=== PATIENT | female | born 1975 | race Caucasian/White ===

== ENCOUNTER 2020-03-21 08:36 | Outpatient (REF) | payer BC, SELFPAY ==
[2020-03-21 11:18] LABS: MANUAL DIFF FLAG NO
[2020-03-21 11:20] LABS: Basophils Percent Auto 0.4 % (0-2); Eosinophils Absolute Auto 0.3 X10*3/uL (0.0-0.4); Eosinophils Percent Auto 4.8 % (0-4); Hematocrit 34.7 % (37-47); Hemoglobin 11.2 g/dl (12.0-16.0); Imm Gran Abs Auto 0.01 X10*3/uL (0.00-0.03); Imm Gran Pct Auto 0.2 % (0.0-0.4); Lymphocytes Absolute Auto 1.4 X10*3/uL (1.2-4.9); Lymphocytes Percent Auto 26.8 % (20-40); Mean Corpuscular HGB Conc 32.3 g/dl (31.0-35.0); Mean Corpuscular Hemoglobin 30.4 pg (27.0-33.0); Mean Platelet Volume 11.8 fL (9.4-12.3); Monocytes Absolute Auto 0.6 X10*3/uL (0.1-1.2); Monocytes Percent Auto 11.7 % (2-11); Neutrophils Percent Auto 56.1 % (45-73); Platelet Count 232 X10*3/uL (160-400); Red Blood Count 3.69 X10*6/uL (4.20-5.50); Red Cell Distribution Width 12.7 % (11.0-16.0); White Blood Count 5.4 X10*3/uL (4.8-10.8)
[2020-03-21 11:55] LABS: Alanine Aminotransferase 17 U/L (0-31); Albumin Level 3.8 g/dL (3.5-5.0); Alkaline Phosphatase 65 U/L (39-117); Anion Gap 10 (12-20); Aspartate Amino Transferase 14 U/L (5-31); Bilirubin Total 0.4 mg/dL (0.0-1.0); Blood Urea Nitrogen 15 mg/dL (9-16); Calcium 8.6 mg/dL (8.4-10.2); Carbon Dioxide 27 mmol/L (22-29); Chloride 106 mmol/L (96-108); Cholesterol 182 mg/dL; Estimated Glomerular Filt Rate > 60; Glucose Fasting 95 mg/dL (60-99); HDL Cholesterol 47 mg/dL; LDL Cholesterol Calculated 121 mg/dl; Sodium 139 mmol/L (135-145); Total Protein 6.3 g/dL (6.5-8.0); Triglycerides 74 mg/dL
[2020-03-21 12:15] LABS: Thyroid Stimulating Hormone 1.19 uIU/mL (0.32-4.0); Vitamin D 25-OH Total 21.1 ng/mL (>30)
[2020-03-22 07:50] LABS: ~HepC Num1 0.06 S/CO (0.00-0.79); ~Hepatitis C Antibody Nonreactive (Nonreactive)
== END 2020-03-21 08:37 | disposition home or self-care (01) ==
LOC: HO.MANLDS 08:36
PROVIDERS: PCP Internal Medicine; Visit Provider Internal Medicine
DX: Z00.00 Encounter for general adult medical examination without abnormal findings (principal); Z13.220 Encounter for screening for lipoid disorders; Z13.29 Encounter for screening for other suspected endocrine disorder; Z11.59 Encounter for screening for other viral diseases
CPT/HCPCS: 36415; 80053; 80061; 82306; 84443; 85025; 86803

== ENCOUNTER 2021-02-23 08:13 | Outpatient (REF) | payer BC, SELFPAY ==
[2021-02-23 11:06] LABS: Basophils Percent Auto 0.4 % (0-2); Eosinophils Absolute Auto 0.3 X10*3/uL (0.0-0.4); Eosinophils Percent Auto 5.1 % (0-4); Hematocrit 38.4 % (37.0-47.0); Hemoglobin 12.9 g/dl (12.0-16.0); Imm Gran Abs Auto 0.01 X10*3/uL (0.00-0.03); Imm Gran Pct Auto 0.2 % (0.0-0.4); Lymphocytes Absolute Auto 1.5 X10*3/uL (1.2-4.9); Lymphocytes Percent Auto 26.2 % (20-40); MANUAL DIFF FLAG NO; Mean Corpuscular HGB Conc 33.6 g/dl (31.0-35.0); Mean Corpuscular Hemoglobin 31.5 pg (27.0-33.0); Mean Corpuscular Volume 93.7 fL (80.0-98.0); Mean Platelet Volume 11.3 fL (9.4-12.3); Monocytes Absolute Auto 0.6 X10*3/uL (0.1-1.2); Monocytes Percent Auto 10.8 % (2-11); Neutrophils Absolute Auto 3.2 x10*3/uL (2.0-8.3); Neutrophils Percent Auto 57.3 % (45-73); Platelet Count 260 X10*3/uL (160-400); Red Cell Distribution Width 12.2 % (11.0-16.0); White Blood Count 5.7 X10*3/uL (4.8-10.8)
[2021-02-23 11:34] LABS: Alanine Aminotransferase 16 U/L (0-31); Alkaline Phosphatase 65 U/L (39-117); Anion Gap 11 (12-20); Aspartate Amino Transferase 15 U/L (5-31); Bilirubin Total 0.7 mg/dL (0.0-1.0); Blood Urea Nitrogen 14 mg/dL (9-16); Calcium 8.9 mg/dL (8.4-10.2); Carbon Dioxide 25 mmol/L (22-29); Chloride 105 mmol/L (96-108); Cholesterol 173 mg/dL; Estimated Glomerular Filt Rate > 60; Glucose Fasting 88 mg/dL (60-99); HDL Cholesterol 48 mg/dL; LDL Cholesterol Calculated 112 mg/dl; Potassium 4.2 mmol/L (3.3-5.1); Sodium 137 mmol/L (135-145); Total Protein 6.7 g/dL (6.5-8.0); Triglycerides 69 mg/dL
[2021-02-23 11:56] LABS: Vitamin D 25-OH Total 17.9 ng/mL (>30)
== END 2021-02-23 08:14 | disposition home or self-care (01) ==
LOC: HO.MANLDS 08:13
PROVIDERS: PCP Internal Medicine; Visit Provider Internal Medicine
DX: Z00.00 Encounter for general adult medical examination without abnormal findings (principal)
CPT/HCPCS: 36415; 80053; 80061; 82306; 84443; 85025

== ENCOUNTER 2022-10-29 08:10 | Outpatient (REF) | payer BC, SELFPAY ==
[2022-10-29 13:07] LABS: MANUAL DIFF FLAG NO
[2022-10-29 13:19] LABS: Basophils Percent Auto 0.3 % (0-2); Eosinophils Absolute Auto 0.1 X10*3/uL (0.0-0.4); Eosinophils Percent Auto 2.3 % (0-4); Hematocrit 41.3 % (37.0-47.0); Hemoglobin 13.5 g/dl (12.0-16.0); Imm Gran Abs Auto 0.01 X10*3/uL (0.00-0.03); Imm Gran Pct Auto 0.2 % (0.0-0.4); Lymphocytes Absolute Auto 1.7 X10*3/uL (1.2-4.9); Lymphocytes Percent Auto 29.2 % (20-40); Mean Corpuscular HGB Conc 32.7 g/dl (31.0-35.0); Mean Corpuscular Hemoglobin 30.6 pg (27.0-33.0); Mean Corpuscular Volume 93.7 fL (80.0-98.0); Mean Platelet Volume 10.9 fL (9.4-12.3); Monocytes Absolute Auto 0.6 X10*3/uL (0.1-1.2); Monocytes Percent Auto 9.8 % (2-11); Neutrophils Absolute Auto 3.3 x10*3/uL (2.0-8.3); Neutrophils Percent Auto 58.2 % (45-73); Platelet Count 307 X10*3/uL (160-400); Red Blood Count 4.41 X10*6/uL (4.20-5.50); Red Cell Distribution Width 12.4 % (11.0-16.0); White Blood Count 5.7 X10*3/uL (4.8-10.8)
[2022-10-29 14:00] LABS: Alanine Aminotransferase 15 U/L (0-31); Albumin Level 4.1 g/dL (3.5-5.0); Alkaline Phosphatase 82 U/L (39-117); Anion Gap 14 (12-20); Aspartate Amino Transferase 16 U/L (5-31); Bilirubin Total 0.6 mg/dL (0.0-1.0); Blood Urea Nitrogen 13 mg/dL (9-16); Calcium 9.6 mg/dL (8.4-10.2); Carbon Dioxide 21 mmol/L (22-29); Chloride 107 mmol/L (96-108); Cholesterol 180 mg/dL; Estimated Glomerular Filt Rate > 60; Glucose Random 97 mg/dL (60-115); HDL Cholesterol 44 mg/dL; LDL Cholesterol Calculated 117 mg/dl; Potassium 3.8 mmol/L (3.3-5.1); Sodium 138 mmol/L (135-145); Triglycerides 99 mg/dL
[2022-10-29 14:09] LABS: Vitamin D 25-OH Total 47.6 ng/mL (>30)
== END 2022-10-29 08:11 | disposition home or self-care (01) ==
LOC: HO.MANLDS 08:10
PROVIDERS: Visit Provider Internal Medicine
DX: Z00.00 Encounter for general adult medical examination without abnormal findings (principal)
CPT/HCPCS: 36415; 80053; 80061; 82306; 84443; 85025

== ENCOUNTER 2024-06-10 09:22 | Outpatient (REF) | payer BC, SELFPAY ==
--- OUTSIDE RECORDS SUMMARY | 2024-06-10 10:07 | XMS_ITS | Continuity of Care Document ---
Author Organization [facility], [facility] Address [address] [place] [address] [place] [address] Assessment No assessment recorded. Plan of Treatment Reminders Order Date Submit Date Provider Last Modified By Organization Details Last Modified Time Details Appointments ANNUAL EXAM 2025 09:00A M DR CHAVEZ Not available Not available Not available Lab lipid panel, serum 2024 025 [facility], [address] [place] [address], [id number], 05/24/2024 14:05:30 CMP, serum or plasma 2024 025 [facility], [address] [place] [address], [id number], 05/24/2024 14:05:30 CBC w/ auto diff 2024 025 [facility], [address] [place] [address], [id number], 05/24/2024 14:05:30 vitamin D, 25-hydrox y, total, serum 2024 025 [facility], [address] [place] [address], [id number], 05/24/2024 14:06:03 Referral gastroent erologist referral 2024 025 [facility] [place], [address] [place] [address], [id number], 05/24/2024 14:10:59 Procedures None recorded. Surgeries None recorded. Imaging CT, coronary calcium score 2024 025 [facility], [facility] [place], [id number], 06/08/2024 09:29:40 Medication Orders None recorded. Patient TargetsNo targets recorded. Patient InstructionsNo instructions recorded. 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 3 11:12:28 Microcal cificati ons of the breast 55794183 Active 2017 Left Not Available [facility] 3 11:12:28 Allergic rhinitis 83193882 Active 2018 Not Available [facility] 3 11:12:28 Eczema 22587123 Active 2018 Not Available [facility] 3 11:12:28 COVID-19 362649617 Active 2022 Mu Chavez DO [address] [place], [address], [facility] 3 09:23:58 Contact dermatit is 84091710 Active 2023 BEBE TAYLOR [address] [place] [address], [id number], [facility] 4 16:06:45 Problem Notes None recorded. Procedures Surgical History Date Name Laterality Status Provider Name and Address Organization Details Recorded Time 0 Date of Last Pap Smear completed Carmelamolina Jean Baptiste [facility] 01/11/2020 09:56:06 9 Most Recent Mammogram completed Carmelamolina Jean Baptiste [facility] 01/13/2019 08:11:39 Imaging Results None recorded. Procedure Notes None recorded. Medical Equipment None Reported. Allergies No known drug allergies Medications Name Sig Start Date Stop Date Status Note LastModified by Organization Details LastModified Time azithromyci n 250 mg tablet TAKE 2 TABLETS BY MOUTH TODAY, THEN TAKE 1 TABLET DAILY FOR 4 DAYS DIRECTED 05/24 completed Not Available Not Available Not Available amoxicillin 875 mg tablet 01/20 completed Not Available Not Available Not Available prednisone 50 mg tablet 01/20 completed Not Available Not Available Not Available diclofenac potassium 50 mg tablet 12/16 completed Not Available Not Available Not Available omeprazole 20 mg capsule,del ayed release 12/16 completed Not Available Not Available Not Available codeine 10 mg-guaifene sin 100 mg/5 mL oral liquid Take 10 mL every 4 hours by oral route for 5 days. 01/13 completed Not Available Not Available Not Available fluocinolon e 0.01 % topical solution apply to skin twice daily after washing 01/13 completed Not Available Not Available Not Available fluocinonid e 0.05 % topical solution USE NEEDED FOR ITCH active Not Available Not Available No t Available methylpredn isolone 4 mg tablets in a dose pack TAKE 6 TABLETS ON DAY 1 DIRECTED ON PACKAGE AND DECREASE BY 1 TAB EACH DAY FOR A TOTAL OF 6 DAYS 05/24 completed Not Available Not Available Not Available fluticasone propionate 50 mcg/actuati on nasal spray,suspe nsion USE 2 SPRAYS DAILY 2023 active Not Available Not Available Not Avai lable doxycycline hyclate 100 mg tablet TAKE 2 TABLETS BY MOUTH ONCE TICK BITE 05/24 completed Not Available Not Available Not Available amoxicillin 875 mg-potassiu m clavulanate 125 mg tablet TAKE 1 TABLET BY MOUTH EVERY 12 HOURS FOR 7 DAYS 07/16 completed Not Available Not Available Not Available Flonase prn 10/11 completed Not Available Not Available Not Available multivitami n qd active Not Available Not Available Not Available 12 Hour Decongestan t ER 120 mg tablet,exte nded release 01/20 completed Not Available Not Available Not Available Zyrtec 10 mg capsule Take 1 capsule every day by oral route. active Not Available Not Available No t Available Fluarix Quad 8917-9062 (PF) 60 mcg (15 mcg x 4)/0.5 mL IM syringe 05/25 completed Not Available Not Available Not Available Fluzone Quad (PF) 60 mcg(15 mcgx4)/0.5 mL intramuscul ar syringe 05/25 completed Not Available Not Available Not Available Afluria Qd 2018- (36 mos up)(PF)60 mcg (15 mcg x4)/0.5 mL IM syringe 02/09 completed Not Available Not Available Not Available Afluria Qd 2019- (36 mos up)(PF)60 mcg (15 mcg x4)/0.5 mL IM syringe 02/09 completed Not Available Not Available Not Available BinaxNOW COVID-19 Ag Self Test kit USE DIRECTED 10/11 completed Not Available Not Available Not Available Paxlovid 300 mg (150 mg x 2)-100 mg tablets in a dose pack TAKE 3 TABLETS BY MOUTH TWICE A DAY FOR 5 DAYS DIRECTED 07/07 completed Not Available Not Available Not Available Vitals Date Recorded Body height Body mass index (BMI) Body weight Heart rate Oxygen saturation Oxygen saturation in Arterial blood by Pulse oximetry Systolic blood pressure Diastolic blood pressure Provider Name and Address Organization Details Last Updated DateTime 5 171.45 cm 39.5 kg/m2 375645. 65 g 86 /min 99 % 99 % 124 mm[Hg] 72 mm[Hg] [facility] 5 13:38:28 Social History Question Answer Notes LastModified by Organizat ion Details LastModified Time Tobacco Smoking Status Never Smoker Not Available [facility] 02/22/2020 03:36:24 What Was The Date Of Your Most Recent Tobacco Screening? 05/24/2024 [email or web address] Information not available 05/24/2024 Do You Or Have You Ever Used Any Other Forms Of Tobacco Or Nicotine? No [email or web address] Information not available 10/11/2022 Sex: Unknown Functional Status None recorded. Mental Status None recorded. Family History Relationship Description Onset Age of this Age Resolved Age Notes LastModified by Organization Details LastModified Time Father Cerebral arteriovenou s malformation [email or web address] Not available 08:13:55 Medical History No medical history recorded. Gynecological History Statement/Question Response Date of Last Pap Smear 01/11/2020 Most Recent Mammogram 01/06/2019 Obstetrics History GPAL:G 0 P 0 0 0 0 Immunizations Vaccine Type Date Status Note Provider Nam e and Address Organization Details Recorded Time Influenza, split virus, quadrivalent, preservative 1 completed Marta [facility] 02/09/2021 14:30:10 Influenza, split virus, quadrivalent, preservative 8 completed Carmela Jean Baptiste [facility] 01/13/2019 13:27:25 influenza, unspecified formulation 3 completed Do Rao [facility] 03/03/2023 15:43:20 Tdap 4 completed Sotero Chavez [facility] 02/18/2024 11:09:50 Influenza, split virus, quadrivalent, PF 9 completed Carmela Jean Baptiste [facility] 01/13/2019 13:27:25 Influenza, split virus, quadrivalent, preservative 0 completed Carmela Jean Baptiste [facility] 01/21/2020 15:37:10 COVID-19, mRNA, LNP-S, PF, 30 mcg/0.3 mL dose 1 completed Marta Webb [facility] 05/10/2020 08:41:08 COVID-19, mRNA, LNP-S, PF, 30 mcg/0.3 mL dose 0 kenny [facility] 05/10/2020 08:41:21 Tdap 3 completed Carmela Jean Baptiste [facility] 01/13/2019 13:27:25 Past Encounters Encounter ID Performer Location Encounter Start Date Encounter Closed Date Diagnosis/Indication Diagnosis SNOMED-CT Code Diagnosis ICD10 Code Diagnosis Note [id number] Mu Chavez [facility] [address],[place] [address] 05/24/2024 13:30:35 05/24/2024 14:10:58 Screening for malignant neoplasm of colon 421544577 Z12.11 Family his tory of ischemic heart disease 283065469 Z82.49 Health Concerns Section Related Observation LastModified by Organization Detai ls LastModified Time None Recorded Concern Status LastModified by Organization Details LastModified Time None Recorded Payers Encounter Date Sequence Insurance Name Policy Number Policy Kaur Covered Member ID Kaur Member ID Guarantor Name 05/24/2024 1 [facility] [id number] Lyric Abernathy [id number] Tequila Abernathy Notes Date Note Type Note Provider Name a ct Address Organization Details Recorded Time 05/24/2024 text/html here for rechkdo ing well overallrelates that she is feeling well but not sleeping well Mu Chavez, DO [address], [place], [address], [facility] 05/24/2024 14:07:00 OBGyn Episode No OBEpisode recorded.
--- OUTSIDE RECORDS SUMMARY | 2024-06-10 10:07 | XMS_ITS | Data Portability ---
Author Organization [facility] Home Service Address [address] [place] [address] Assessment Encounter Date Assessment Date Assessment LastModified by Organization Details LastModified Time 06/29/2021 06/29/2021 Patient agreed and verbally consents to this audio and video Telehealth appt via a secure platform [email or web address] Not available 06/29/2021 14:06:09 Plan of Treatment Reminders Order Date Submit Date Provider Last Modified By Organization Details Last Modified Time Details Appointments ANNUAL EXAM 2025 09:00A M DR CHAVEZ Not available Not available Not available Lab lipid panel, serum 2024 025 [facility], [address] [place] [address], [address], 05/24/2024 14:05:30 CMP, serum or plasma 2024 025 [facility], [address] [place] [address], [address], 05/24/2024 14:05:30 CBC w/ auto diff 2024 025 [facility], [address] [place] [address], [address], 05/24/2024 14:05:30 vitamin D, 25-hydrox y, total, serum 2024 025 [facility], [address] [place] [address], [address], 05/24/2024 14:06:03 CMP, serum or plasma 2022 023 [facility], [address] [place] [address], [address], 10/30/2022 13:25:58 CBC w/ auto diff 2022 023 [facility], [address] [place] [address], [address], 10/11/2022 12:45:23 lipid panel, blood 2022 023 [facility], [address] [place] [address], [address], 10/11/2022 12:45:23 vitamin D, 25-hydrox y, total, serum 2022 023 [facility], [address] [place] [address], [address], 10/11/2022 12:45:23 TSH, serum or plasma 2022 023 [facility], [address] [place] [address], [address], 10/11/2022 12:45:23 Referral gastroent erologist referral 2024 025 [facility], [address] [place] [address], [address], 05/24/2024 14:10:59 Procedures None recorded. Surgeries None recorded. Imaging CT, coronary calcium score 2024 025 [facility], [address] [place], [address], 06/08/2024 09:29:40 MAMMO, screening , digital, bilateral 2022 023 RICHAR Not available 11/15/2022 12:56:06 Medication Orders Zithromax Z-Davide 250 mg tablet [address]/Pharmacy #2024, [address] [place], [address], 05/24/2024 13:36:29 Medrol (Davide) 4 mg tablets in a dose pack [address]/Pharmacy #5, [address] [place], [address], 05/24/2024 13:36:44 amoxicill in 875 mg-potass ium clavulana te 125 mg tablet 2021 [facility]/Pharmacy #2024, [address] [place], [address], 07/16/2021 14:07:04 Patient TargetsNo targets recorded. Patient InstructionsNo instructions recorded. 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 [email or web address] [facility] [address] [place] [address], [address], 10/31/2021 06:57:03 11/16/19 23 11/13/2022 MAMMO , scree racquel, digit al, bilat eral No observ ation [email or web address] [address] [place] [address], [address], 11/15/2022 13:54:54 12/17/19 24 12/16/2023 MAMMO , scree racquel, digit al, bilat eral No observ ation record ed. [address], [address], 12/17/2023 13:45:06 Result Notes None recorded. Problems Name Problem SNOMED Code Status Onset Date Resolution Date Notes Provider Name and Address Organization Details Recorded Time Disorder of vein 50265472 Active 2017 varicosit ies Not Available [facility] 3 11:12:28 Microcal cificati ons of the breast 26944010 Active 2017 Left Not Available [facility] 3 11:12:28 Allergic rhinitis 18331629 Active 2018 Not Available [facility] 3 11:12:28 Eczema 69893770 Active 2018 Not Available [facility] 3 11:12:28 COVID-19 059181604 Active 2022 Mu Chavez DO [address] [place] [address], [phone], [facility] 3 09:23:58 Contact dermatit is 65902663 Active 2023 BEBE TAYLOR [address] [place] [address], [phone], [facility] 4 16:06:45 Problem Notes None recorded. Procedures Surgical History Date Name Laterality Status Provider Name and Address Organization Details Recorded Time 0 Date of Last Pap Smear completed [facility] 01/11/2020 09:56:06 9 Most Recent Mammogram completed [facility] 01/13/2019 08:11:39 Imaging Results Imaging Date Name Status LastModified by Organiz ation Details LastModified Time 10/29/2021 MAMMO, diagnostic, bilateral completed [email or web address] [facility] [address] [place] [address], [address], 10/31/2021 06:57:03 11/13/2022 MAMMO, screening, digital, bilateral completed [email or web address] [facility] [address] [place], [address], 11/15/2022 13:54:54 12/16/2023 MAMMO, screening, digital, bilateral completed [email or web address] [facility] [address] [facility], [place], [address], 12/17/2023 13:45:06 Procedure Notes None recorded. Medical Equipment None [...] Not Available No t Available Fluarix Quad (PF) 60 mcg (15 mcg x 4)/0.5 mL IM syringe 05/25 completed Not Available Not Available Not Available Fluzone Quad (PF) 60 mcg(15 mcgx4)/0.5 mL intramuscul ar syringe 05/25 completed Not Available Not Available Not Available Afluria Qd 2018- (36 mos up)(PF)60 mcg (15 mcg x4)/0.5 mL IM syringe 02/09 completed Not Available Not Available Not Available Afluria Qd (36 mos up)(PF)60 mcg (15 mcg x4)/0.5 [...] Not Available Vitals Date Recorded Body height Oxygen saturation Oxygen saturation in Arterial blood by Pulse oximetry Heart rate Systolic blood pressure Diastolic blood pressure Provider Name and Address Organization Details Last Updated DateTime 2 172.09 cm 99 % 99 % 78 /min 142 mm[Hg] 80 mm[Hg] Mishel Guillermo [facility] 2 14:09:50 Date Recorded Body height Body mass index (BMI) Body weight Heart rate Oxygen saturation Oxygen saturation in Arterial blood by Pulse oximetry Systolic blood pressure Diastolic blood pressure Provider Name and Address Organization Details Last Updated DateTime 3 172.09 cm 37.2 kg/m2 930388. 23 g 83 /min 98 % 98 % 128 mm[Hg] 70 mm[Hg] Mu Chavez, DO [address] [place], [address] [place] [address] Internal [facility] 3 12:18:56 Date Recorded Body height Body mass index (BMI) Body weight Heart rate Oxygen saturation Oxygen saturation in Arterial blood by Pulse oximetry Systolic blood pressure Diastolic blood pressure Provider Name and Address Organization Details Last Updated DateTime 5 171.45 cm 39.5 kg/m2 489518. 65 g 86 /min 99 % 99 % 124 mm[Hg] 72 mm[Hg] Edwin Mushtaq [facility] 5 13:38:28 Social History Question Answer Notes LastModified by Organizat ion Details LastModified Time Tobacco Smoking Status Never Smoker Not Available [facility] 02/22/2020 03:36:24 What Was The Date Of [...] virus, quadrivalent, preservative 1 completed Marta Webb [facility] 02/09/2021 14:30:10 Influenza, split virus, quadrivalent, preservative 8 completed Carmela Jean Baptiste [facility] 01/13/2019 13:27:25 influenza, unspecified formulation 3 completed Do Rao [facility] 03/03/2023 15:43:20 [facility]dap 4 [facility] 02/18/2024 11:09:50 Influenza, split virus, quadrivalent, PF 9 completed Carmela Jean Baptiste [facility] 01/13/2019 13:27:25 Influenza, split virus, quadrivalent, preservative 0 completed Carmela lund [facility] 01/21/2020 15:37:10 COVID-19, mRNA, LNP-S, PF, 30 mcg/0.3 mL dose 1 completed Marta lund [facility] 05/10/2020 08:41:08 COVID-19, mRNA, LNP-S, PF, 30 mcg/0.3 mL dose 0 completed Marta lund [facility] 05/10/2020 08:41:21 Tdap 3 [facility] 13:27:25 Past Encounters Encounter ID Performer Location Encounter Start Date Encounter Closed Date Diagnosis/Indication Diagnosis SNOMED-CT Code Diagnosis ICD10 Code Diagnosis Note [id number] [address] 12/16/2017 09:31:27 12/16/2017 11:08:58 Microscopic hematuria 163515285 R31.21 has had negative urine work up in the past Adult heal th examination 510552065 Z00.00 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 Active or passive immunization 843242761 Z23 will get flu shot at work [id number] [address] 05/25/2018 11:15:32 05/25/2018 14:06:23 Eczema 06032460 L30.9 Allergic rhinitis 429643 04 J30.1 Upper resp iratory infection 64317899 J06.9 most likely viral [id number] [address] 01/13/2019 13:23:06 01/13/2019 13:52:16 Adult health examination 237904328 Z00.00 Active or passive immunization 929220214 Z23 will get flu shot at work Microscopic hematuria 19 7648600 R31.21 has had negative urology work up in the past Body mass index 30+ - obesity 756398755 Z68.36 Vitamin D deficiency 347 89663 E55.9 [id number] [facility] [address],[place] [address] 01/21/2020 15:26:35 01/21/2020 15:57:23 Adult health examination 492526764 Z00.00 doing well no major issues [id number] Mu Chavez DO [facility] [address] [facility] [address] 02/09/2021 14:25:27 02/09/2021 15:01:04 Active or passive immunization 624121753 Z23 Adult heal th examination 513539213 Z00.00 doing well no major issues Microcalci fications of the breast 33108932 R92.0 needs 6 mo follow up for the micrcalcif ications [id number] BEBE TAYLOR [facility] [address] [facility] [address] 06/29/2021 10:36:16 07/03/2021 09:20:36 Acute sinusitis 12808478 J01.01 start on abxfu if no improvemen t [id number] BEBE TAYLOR [facility] [address] [facility] [facility] [place] [address] 07/16/2021 14:03:11 07/16/2021 15:16:46 Acute otitis media 8380788 H65.02 start medication scall tomorrow with an update Facial swelling 73028575 6 R22.0 left side, probably due to infectionc all with update tomorrow [id number] Mu Chavez DO [facility] [address] [facility] [address] 10/11/2022 11:56:53 10/11/2022 14:10:50 Active or passive immunization 071548669 Z23 Adult [facility] th examination 407307046 Z00.00 doing well no major issues Screening mammography 24 549901 Z12.31 microcalci fic ds [id number] BEBE TAYLOR [facility] [address] [facility] [address] 05/26/2023 10:56:53 05/30/2023 15:42:26 [id number] Mu Chavez DO [facility] [address] [facility],[place] [address] 05/24/2024 13:30:35 05/24/2024 14:10:58 Screening for malignant neoplasm of colon 601047115 Z12.11 Family his tory of ischemic heart disease 758632423 Z82.49 Health Concerns Section Related Observation LastModified by Organization Detai ls LastModified Time None Recorded Concern Status LastModified by Organization Details LastModified Time None Recorded Advance Directives Directive None Recorded Payers Encounter Date Sequence Insurance Name Policy Number Policy Kaur Covered Member ID Kaur Member ID Guarantor Name 06/29/2021 1 [place] [id number] A David Wodecki [id number] Tequila Martine Wodecki 07/16/2021 1 [place] [id number] A David Wodecki [id number] Tequila L Wodecki 10/11/2022 1 [place] [id number] A David Wodecki [id number] Tequila L Wodecki 05/26/2023 1 [place] [id number] A David Wodecki [id number] Tequila L Wodecki 05/24/2024 1 [place] [id number] A David Wodecki [id number] Tequila L Wodecki Notes Date Note Type Note Provider Name a nd Address Organization Details Recorded Time 2 text/html c/o sinus infection tele-med phone callpatient consents to phone call the patient reports for the past week she has had sinus pressure and pain, producing thick white to brown coloredthe patient reports she tried to use sudafed without any effectpain is across the forehead and the cheekbones, worsening with bending forward and wearing her glassesvery painful in her upper teeth as well no other symptoms, no fever, no chills BEBE TAYLOR [address] [place], [address], [facility] 06/29/2021 14:08:19 2 text/html c/o ear infection with facial swelling swollen left side of her jaw, no dental patient or obvious infectionleft ear drum is swollen, red and bulging recently on abx for sinus infection, augmentinwill trial z davide and steriods for inflammation and otitis mediawill fu tomorrow to see progress may need XRs for her face as well to make sure it's not a dental infection BEBE TAYLOR [address] [place], [address], [facility] 07/16/2021 14:23:30 3 text/html Annual WellnessReported bypatient.Diet and Nutrition:healthy diet Fracture Risk:no history of fractures; no recent explained fracture; no sudden unexplained fractures; no previous musculoskeletal injuries Physical Activity:exercises on a regular basis; recent increase in physical activity; good physical condition Additional Lifestyle Factors:no tobacco use; no alcohol intake; stopped drinking alcohol Depression Risk:never feels sad, empty, or tearful; no loss of interest in activities; no significant changes in weight; no sleep disturbances or insomnia; no agitation; no loss of energy; no feelings of worthlessness or guilt; no thoughts of suicide; no history of depression; no history of mood disorders Hearing:no loss of hearing Vision:no vision problems Mu Chavez DO [address] [place], [address], [facility] 10/11/2022 12:43:09 5 text/html here for rechkdoing well overallrelates that she is feeling well but not sleeping well Mu Chavez DO [address] [place], [address], [facility] 05/24/2024 14:07:00 OBGyn Episode No OBEpisode recorded.
[2024-06-10 11:43] LABS: MANUAL DIFF FLAG NO
[2024-06-10 11:49] LABS: Basophils Percent Auto 0.4 % (0-2); Eosinophils Absolute Auto 0.2 X10*3/uL (0.0-0.4); Eosinophils Percent Auto 3.3 % (0-4); Hematocrit 39.4 % (37.0-47.0); Hemoglobin 12.8 g/dl (12.0-16.0); Imm Gran Abs Auto 0.01 X10*3/uL (0.00-0.03); Imm Gran Pct Auto 0.2 % (0.0-0.4); Lymphocytes Absolute Auto 1.7 X10*3/uL (1.2-4.9); Lymphocytes Percent Auto 31.7 % (20-40); Mean Corpuscular HGB Conc 32.5 g/dl (31.0-35.0); Mean Corpuscular Hemoglobin 30.3 pg (27.0-33.0); Mean Corpuscular Volume 93.1 fL (80.0-98.0); Mean Platelet Volume 11.4 fL (9.4-12.3); Monocytes Absolute Auto 0.6 X10*3/uL (0.1-1.2); Monocytes Percent Auto 10.6 % (2-11); Neutrophils Absolute Auto 2.9 x10*3/uL (2.0-8.3); Neutrophils Percent Auto 53.8 % (45-73); Platelet Count 269 X10*3/uL (160-400); Red Blood Count 4.23 X10*6/uL (4.20-5.50); Red Cell Distribution Width 12.5 % (11.0-16.0); White Blood Count 5.5 X10*3/uL (4.8-10.8)
[2024-06-10 12:33] LABS: Alanine Aminotransferase 33 U/L (0-31); Albumin Level 4.2 g/dL (3.5-5.0); Alkaline Phosphatase 101 U/L (39-117); Anion Gap 9 (12-20); Aspartate Amino Transferase 25 U/L (5-31); Bilirubin Total 0.5 mg/dL (0.0-1.0); Blood Urea Nitrogen 19 mg/dL (9-16); Calcium 9.4 mg/dL (8.4-10.2); Carbon Dioxide 27 mmol/L (22-29); Chloride 108 mmol/L (96-108); Cholesterol 175 mg/dL (<200); Estimated Glomerular Filt Rate > 60; Glucose Random 98 mg/dL (60-115); HDL Cholesterol 47 mg/dL (>40); LDL Cholesterol Calculated 113 mg/dL (<100); Potassium 4.1 mmol/L (3.3-5.1); Sodium 140 mmol/L (135-145); Total Protein 7.5 g/dL (6.5-8.0); Triglycerides 78 mg/dL (<150); Vitamin D 25-OH Total 29.3 ng/mL (>30)
== END 2024-06-10 09:23 | disposition home or self-care (01) ==
LOC: HO.WFDLDS 09:22
PROVIDERS: Visit Provider Internal Medicine
DX: Z13.6 Encounter for screening for cardiovascular disorders (principal); Z82.49 Family history of ischemic heart disease and other diseases of the circulatory system
CPT/HCPCS: 36415; 80053; 80061; 82306; 85025

== ENCOUNTER 2024-07-13 11:30 | Outpatient (REF) | payer BC, SELFPAY ==
[2024-07-13 13:48] LABS: Appearance Urine Clear; Color Urine Yellow; Glucose Urine UA Negative (Negative); Leukocyte Esterase Urine Negative (Negative); Nitrite Urine Negative (Negative); PH 6.5 (5.0-9.0); Specific Gravity - Urine <= 1.005 (1.005-1.025); UMIC TRIGGER UACC YES; Urine Blood Trace (Negative); Urine Ketones Negative (Negative); Urine Protein Negative (Neg-Trace)
[2024-07-13 13:51] LABS: Bacteria Urine None Seen (None Seen); Hyaline Casts Urine 0-2 /LPF (0-2); RBC Urine 0-2 /HPF (0-2); Squamous Epithelial Cell Urine 0-2 /HPF (0-2); WBC Urine 0-5 /HPF (0-5)
== END 2024-07-13 11:31 | disposition home or self-care (01) ==
LOC: HO.MANLDS 11:30
PROVIDERS: Visit Provider Internal Medicine
DX: R10.9 Unspecified abdominal pain (principal)
CPT/HCPCS: 81001

== ENCOUNTER 2024-07-21 10:06 | Outpatient (REF) | payer BC, SELFPAY ==
--- OUTSIDE RECORDS SUMMARY | 2024-07-21 11:40 | XMS_ITS | Data Portability ---
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 MUST MEET 2 OUT OF 3 ELEMENTS: PROBLEMS, DATA OR RISK ELEMENT 1: PROBLEMS ADDRESSED 1 OR MORE CHRONIC ILLNESS WITH EXACERBATION OR 2 OR MORE STABLE CHRONIC ILLNESSES OR 1 UNDIAGNOSED NEW PROBLEM OR 1 ACUTE ILLNESS W/SYMPTOMS OR 1 ACUTE COMPLICATED INJURY ELEMENT 2: DATA MUST MEET 1 OF 3 CATEGORIES CATEGORY 1: REVIEW OF PRIOR EXTERNAL NOTES, REVIEW OF RESULTS, ORDERING OF EACH TEST, ASSESSMENT REQUIRING INDEPENDENT HISTORIAN OR CATEGORY 2: INDEPENDENT INTERPRETATION OF TESTS BY ANOTHER PHYSICIAN OR SPECIALIST OR CATEGORY 3: DISCUSSION OF MGT OR TEST INTERPRETATION W/EXTERNAL PHYSICIAN OR SPECIALIST ELEMENT 3: RISK RISK OF COMPLICATIONS AND/OR MORBIDITY OR MORTALITY OF PATIENT MANAGEMENT PROVIDER MUST THOROUGHLY DOCUMENT EACH ELEMENT THAT IS COVERED Not available 07/13/2024 11:13:45 Plan of Treatment Reminders Order Date Submit Date Provider Last Modified By Organization Details Last Modified Time Details Appointments ANNUAL EXAM 2025 09:00A M DR CHAVEZ Not available Not available Not available Lab urinalysi s complete, reflex culture 2024 025 [facility], [address] [place] [address], [place], [address], 07/14/2024 13:15:46 lipid panel, serum 2024 025 [facility], [address] [place] [address], [address], 06/11/2024 11:26:24 CMP, serum or plasma 2024 025 [facility], [address] [place] [address], [address], 06/11/2024 11:26:24 CBC w/ auto diff 2024 025 [facility], [address] [place] [address], [address], 06/11/2024 11:26:25 vitamin D, 25-hydrox y, total, serum 2024 025 [facility], [address] [place] [address], [address], 05/24/2024 14:06:03 CMP, serum or plasma 2022 023 [facility], [address] [place] [address], [address], 10/30/2022 13:25:58 CBC w/ auto diff 2022 023 [facility], [address] [place] [address], [address], 10/11/2022 12:45:23 lipid panel, blood 2022 023 [facility], [address] [place] [address], [address], 10/11/2022 12:45:23 vitamin D, 25-hydrox y, total, serum 2022 023 [facility], [address] [place] [address], [address], 10/11/2022 12:45:23 TSH, serum or plasma 2022 023 [facility], [address] [facility], [place], [address], 10/11/2022 12:45:23 Referral gastroent erologist referral 2024 025 [facility], [address] [place] [address], [id number], 06/21/2024 10:03:20 Procedures None recorded. Surgeries None recorded. Imaging XR, lumbosacr al spine, 2 or 3 view 2024 025 [email or web address] [facility], [address] [place] [address], [address], 07/13/2024 13:13:56 CT, abdomen + pelvis, w/o contrast 2024 025 [facility], [address] [place] [address], [address], 07/20/2024 15:55:34 CT, coronary calcium score 2024 025 [facility], [address] [place] [address], [address], 06/08/2024 09:29:40 MAMMO, screening , digital, bilateral 2022 023 RICHAR Not available 11/15/2022 12:56:06 Medication Orders codeine 10 mg-guaife nesin 100 mg/5 mL oral liquid 2024 025 [facility]2024, [address] [place], [address], 07/13/2024 10:45:58 Zithromax Z-Davide 250 mg tablet 2024 025 [facility]2024, [address] [place], [address], 07/13/2024 10:45:54 Medrol (Davide) 4 mg tablets in a dose pack 2024 025 [facility] #5, [address] [facility], [place], [address], 07/13/2024 10:46:04 Patient TargetsNo targets recorded. 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 [facility] [address] [place] [address], [id number], 11/15/2022 13:54:54 12/17/19 24 12/16/2023 MAMMO , scree racquel, digit al, bilat eral No observ ation record ed. [address], [address], 12/17/2023 13:45:06 06/26/19 25 06/25/2024 CT, coron edward calci um score No observ ation record ed. [facility] [address] [facility] [address], [place], [address], 06/28/2024 12:10:54 07/21/19 25 07/20/2024 CT, abdom en + pelvi s, w/o contr ast No observ ation record ed. [address] [facility] [address] [facility] [address], [place], [address], 07/21/2024 10:08:49 Result Notes None recorded. 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 3 09:23:58 Contact dermatit is 31984058 Active 2023 BEBE TAYLOR [address] [place] [address], [address], [facility] 4 16:06:45 Acute sinusiti s 74358171 Active 2024 [address]BE TAYLOR [address] [place] [address], [address], [facility] 5 11:05:21 Cough 11608089 Active 2024 BEBE TAYLOR [address] [place] [address], [address], [facility] 5 11:06:44 Right flank pain 414443686 Active 2024 Mu Chavez DO [address] [place] [address], [address], [facility] 5 11:14:16 Low back pain 070927783 Active 2024 Mu Chavez DO [address] [place], [address], [facility] 5 11:18:15 Abdomina l pain 18362934 Active 2024 Mu Chavez, DO [address] [place], [address], 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 5 10:09:30 Problem Notes None recorded. Procedures Surgical History Date Name Laterality Status Provider Name and Address Organization Details Recorded Time 0 Date of Last Pap Smear completed [facility] 01/11/2020 09:56:06 9 Most Recent Mammogram completed [facility] 01/13/2019 08:11:39 Imaging Results Imaging Date Name Status LastModified by Organiz ation Details LastModified Time 11/13/2022 MAMMO, screening, digital, bilateral completed [facility] [address] [place] [address], [address], 11/15/2022 13:54:54 12/16/2023 MAMMO, screening, digital, bilateral completed [address], [address], 12/17/2023 13:45:06 06/25/2024 CT, coronary calcium score completed [facility] [address] [place] [address] [address], [place], [address], 06/28/2024 12:10:54 07/20/2024 CT, abdomen + pelvis, w/o contrast completed [address] [facility] [address] [place] [address] [address], [place], [address], 07/21/2024 10:08:49 Procedure Notes None recorded. Medical Equipment None Reported. Allergies No known drug allergies Medications Name Sig Start Date Stop Date Status Note LastModified by Organization Details LastModified Time azithromyci n 250 mg tablet TAKE 2 TABLETS BY MOUTH TODAY, THEN TAKE 1 TABLET DAILY FOR 4 DAYS DIRECTED 07/13 completed Not Available Not Available Not Available [...] mg-guaifene sin 100 mg/5 mL oral liquid TAKE 10 ML BY MOUTH EVERY 4 HOURS NEEDED FOR 5 DAYS 07/13 completed Not Available Not Available Not Available [...] DAY FOR A TOTAL OF 6 DAYS 07/13 completed Not Available Not Available Not Available fluticasone propionate 50 mcg/actuati on nasal spray,suspe nsion active Not Available Not Available Not Available doxycycline hyclate 100 mg tablet TAKE 2 [...] Updated DateTime 3 172.09 cm 37.2 kg/m2 227452. 23 g 83 /min 98 % 98 % 128 mm[Hg] 70 mm[Hg] Mu Chavez, DO [address] [place], [address] [place] [address] Internal Medicine 3 12:18:56 Date Recorded Body height Body mass index (BMI) Body weight Heart rate Oxygen saturation Oxygen saturation in Arterial blood by Pulse oximetry Systolic blood pressure Diastolic blood pressure Provider Name and Address Organization Details Last Updated DateTime 5 171.45 cm 39.5 kg/m2 256124. 65 g 86 /min 99 % 99 % 124 mm[Hg] 72 mm[Hg] Edwin Landin [facility] 5 13:38:28 Date Recorded Body height Body mass index (BMI) Body weight Heart rate Oxygen saturation Oxygen saturation in Arterial blood by Pulse oximetry Systolic blood pressure Diastolic blood pressure Provider Name and Address Organization Details Last Updated DateTime 5 171.45 cm 39.5 kg/m2 353966. 72 g 73 /min 96 % 96 % 148 mm[Hg] 92 mm[Hg] Jaylyn Gaming [facility] 5 10:50:00 Social History Question Answer Notes LastModified by Organizat ion Details LastModified Time Tobacco Smoking Status Never Smoker Not Available [facility] 02/22/2020 03:36:24 What Was The Date Of Your Most Recent Tobacco Screening? 07/13/2024 [email or web address] Information not available 07/13/2024 Do You Or Have You Ever Used Any Other Forms Of Tobacco Or Nicotine? No Information not available 10/11/2022 Sex: Unknown Functional [...] split virus, quadrivalent, preservative 1 completed Marta lund [facility] 02/09/2021 14:30:10 Influenza, split virus, quadrivalent, preservative 8 completed Carmela lund [facility] 01/13/2019 13:27:25 influenza, unspecified formulation 3 completed Do Rao [facility] 03/03/2023 15:43:20 Tdap 4 completed Sotero Chavez [facility] Internal [facility] 02/18/2024 11:09:50 Influenza, split virus, quadrivalent, PF 9 completed Carmela lund [facility] 01/13/2019 13:27:25 Influenza, split virus, quadrivalent, preservative 0 completed Carmela lund [facility] 01/21/2020 15:37:10 COVID-19, mRNA, LNP-S, PF, 30 mcg/0.3 mL dose 1 completed Marta lund [place] [facility] 05/10/2020 08:41:08 COVID-19, mRNA, LNP-S, PF, 30 mcg/0.3 mL dose 0 completed Marta lund [facility] 05/10/2020 08:41:21 Tdap 3 [facility] 13:27:25 Past Encounters Encounter ID Performer Location Encounter Start Date Encounter Closed Date Diagnosis/Indication Diagnosis SNOMED-CT Code Diagnosis ICD10 Code Diagnosis Note [id number] [facility] [address] [facility], [place] [address] 12/16/2017 09:31:27 12/16/2017 11:08:58 Microscopic hematuria 272083575 R31.21 has had negative urine work up in the past Adult heal th examination 587255844 Z00.00 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 Active or passive immunization 582233066 Z23 will get flu shot at work [id number], [place] [address] 05/25/2018 11:15:32 05/25/2018 14:06:23 Eczema 49407199 L30.9 Allergic rhinitis 651383 04 J30.1 Upper resp iratory infection 76157985 J06.9 most likely viral [id number] [facility] [address] [facility], [place] [address] 01/13/2019 13:23:06 01/13/2019 13:52:16 Adult health examination 131164634 Z00.00 Active or passive immunization 527720017 Z23 will get flu shot at work Microscopic hematuria 19 8213105 R31.21 has had negative urology work up in the past Body mass index 30+ - obesity 655715274 Z68.36 Vitamin D deficiency 347 56353 E55.9 [id number] Mu Chavez [facility] Internal [facility] [address] [facility], [place] [address] 01/21/2020 15:26:35 01/21/2020 15:57:23 Adult health examination 369411063 Z00.00 doing well no major issues [id number] Mu Chavez [facility] [address] [facility] [address],[place] [address] 02/09/2021 14:25:27 02/09/2021 15:01:04 Active or passive immunization 099697492 Z23 Adult heal th examination 786514185 Z00.00 doing well no major issues Microcalci fications of the breast 94546891 R92.0 needs 6 mo follow up for the micrcalcif ications [id number] BEBE TAYLOR [facility] [address] [facility] [address],[place] [address] 06/29/2021 10:36:16 07/03/2021 09:20:36 Acute sinusitis 33995905 J01.01 start on abxfu if no improvemen t [id number] BEBE TAYLOR [facility] [address] [facility] [address],[place] [address] 07/16/2021 14:03:11 07/16/2021 15:16:46 Acute otitis media 5021821 H65.02 start medication scall tomorrow with an update Facial swelling 35632751 6 R22.0 left side, probably due to infectionc all with update tomorrow [id number] Mu Chavez [facility] [address] [facility] [address] [address] 10/11/2022 11:56:53 10/11/2022 14:10:50 Active or passive immunization 465806970 Z23 Adult [facility] th examination 822684848 Z00.00 doing well no major issues Screening mammography 24 530797 Z12.31 microcalci fic ds [id number] BEBE TAYLOR [facility] [address] [facility] [address] [address] 05/26/2023 10:56:53 05/30/2023 15:42:26 [id number] Mu Chavez [facility] [address] [facility] [address] [address] 05/24/2024 13:30:35 05/24/2024 14:10:58 Screening for malignant neoplasm of colon 369133184 Z12.11 Family his tory of ischemic heart disease 958575042 Z82.49 [id number] JEREMIAS BEEBE [facility] [address] [facility] [address],[place] [address] 07/05/2024 09:29:56 07/05/2024 14:26:09 Acute sinusitis 21528083 J01.01 start on abx and medrol Cough 89201634 R05.1 [id number] Mu Chavez DO [facility] [address] [facility] [address],[place] [facility] [place] [place] [address] 07/13/2024 10:44:10 07/13/2024 13:13:56 Acute sinusitis 68401389 J01.01 finished abx and doing ok but still coughing Depression screening 171 508219 Z13.31 neg Right flank pain 1289836 09 R10.9 Low back pain 537448939 M54.50 Health Concerns Section Related Observation LastModified by Organization Detai ls LastModified Time None Recorded Concern Status LastModified by Organization Details LastModified Time None Recorded Advance Directives Directive None Recorded Payers Encounter Date Sequence Insurance Name Policy Number Policy Kaur Covered Member ID Kaur Member ID Guarantor Name 10/11/2022 1 [place] [id number] A David Wodecki [id number] Tequila Martine Wodecki 05/26/2023 1 [place] [id number] A David Wodecki [id number] 90 Tequila Martine Wodecki 05/24/2024 1 [place] [id number] A David Wodecki [id number] 90 Tequila Martine Wodecki 07/05/2024 1 [place] [id number] A David Wodecki [id number] 90 Tequila Martine Wodecki 07/13/2024 1 [place] [id number] A David Wodecki [id number] 90 Tequila Martine Abernathy Notes Date Note Type Note Provider Name a nd Address Organization Details Recorded Time 3 text/html Annual WellnessReported bypatient.Diet and Nutrition:healthy [...] hearing Vision:no vision problems Mu Chavez DO [address] [place] [address], [address], [facility] 10/11/2022 12:43:09 5 text/html here for rechkdoing well overallrelates that she is feeling well but not sleeping well Mu Chavez DO [address] [place], [address], [facility] Internal [facility] 05/24/2024 14:07:00 5 text/html c/o sinus infection The patient is participating in this appointment via telemedicine communication with a phone call/video calling service (Yu Rong)The patient consents to use of these platforms in place of an in-person appointment due to either sick symptoms the patient is presenting with or current office closure due to COVID exposure in order to keep our office staff and patients safe The patient presents to the office today with concerns of sick symptoms including sinus pain, pressure, dry cough, nasal congestion, ear pain/pressure, mild sore throat The symptoms started originally last weekThe patient reports exposure to airplaneThe patient symptoms mainly involves the sinus symptoms Pertinent comorbidities include n/a The patient symptoms are alleviated by n/a, no effect with mucinex, APAP cold and flu, sudafed, flonase or zyrtecThe patient symptoms are exacerbated by activity The patient has tested for COVID-19 and the results was negative x 1 BEBE TAYLOR [address] [place], [address], [facility] 07/05/2024 11:29:58 5 text/html Abdominal PainReported bypatient.Onset/Timin g:better Associated Symptoms:no fever; no chills; no blood in the urine; no heartburn; no shortness of breath; no nausea; no vomiting; no diarrhea; no constipation; normal stool; no blood in stool; normal appetite Other:denies possible Pain Radiation:no radiationSinusitis/Al lergyReported bypatient.Quality:no pain; no itching; no hoarseness; no throbbing; minimal discomfort; improving Severity:no pain; does not limit daily activities; no frequent breathing through the mouth; no nosebleeds (epistaxis); no snoring Duration:resolved Onset/Timing:resolved Context:no recent upper respiratory infection; no recent sick contacts; not worse with seasonal allergen exposure; not worse around animals; not worse around pollen; not worse around dust; not worse around molds; not worse with environmental exposure; not worse when mowing grass; not worse with certain foods; not worse with odors Aggravating factors:not worse with change in medication; not worse during an upper respiratory infection (a cold); not worse when allergies are active Associated Symptoms:no nasal discharge; no fever; no weight loss; no cough; no hemoptysis; no hematemesis; no difficulty breathing; no feeling of strangulation; no nausea or vomiting; no headache; no facial pain; no sinus pain; no sore throat; no thick phlegm in throat; not constantly clearing the throat; no nasal discharge; no decreased sense of smell; no nasal passage blockage; no ear fullness; no nasal itching; no eye itching; no pain behind the eyes; no skin itching; no dental pain; no muscle aches Risk Factors:no current smoking or tobacco use; no history of smoking; no increased stress; no family history of allergies; no history of nasal trauma; no allergy to aspirin; no history of nasal polyps; no history of asthma; no chemotherapy; no DM; no HIV; no immunodeficiency sudden development of pain in her right flank radiationg down to her right inguinal region very sore not going away no back injuryno urine discoloration is on end of abx Mu Chavez, DO [address] [place], [address], [facility] 07/13/2024 11:21:01 OBGyn Episode No OBEpisode recorded.
[2024-07-21 13:42] LABS: Amylase 91 U/L (28-100); Lipase 26 U/L (8-78)
[2024-07-21 14:09] LABS: Erythrocyte Sedimentation Rate 14 MM/HR (0-20)
== END 2024-07-21 10:07 | disposition home or self-care (01) ==
LOC: HO.MANLDS 10:06
PROVIDERS: Visit Provider Internal Medicine
DX: R10.9 Unspecified abdominal pain (principal)
CPT/HCPCS: 36415; 82150; 83690; 85652